=== PATIENT | female | born 1985 | race Caucasian/White ===

== ENCOUNTER 2019-05-20 18:26 | Emergency (ER) | payer BC ==
[2019-05-20] MEDS ORDERED: ACETAMINOPHEN 325 MG TABLET PO ONE (19:52)
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
[2019-05-20 20:09] VITALS: BP 150/81
== END 2019-05-20 20:10 | disposition home or self-care (01) ==
LOC: ER 18:26
DX: S09.90XA Unspecified injury of head, initial encounter (principal); W22.8XXA Striking against or struck by other objects, initial encounter; Y99.0 Civilian activity done for income or pay
CPT/HCPCS: 99283